=== PATIENT | female | born 1990 | race Caucasian/White ===

== ENCOUNTER 2025-01-01 14:53 | Emergency (ER) | payer OTHER, SELFPAY ==
[2025-01-01 15:01] VITALS: BP 162/105
[2025-01-01 15:30] LABS: Hematocrit 37.0 % (37.0-47.0); Hemoglobin 12.4 g/dL (12.0-16.0); Mean Corp Hgb Conc. 33.5 g/dL (33.0-37.0); Mean Corpuscular Volume 91.4 fL (81.0-99.0); Platelet Count 185 10^3/uL (130-400); Red Cell Dist. Width 12.6 % (11.5-14.5)
[2025-01-01 15:33] LABS: Urine Character Clear (Clear)
[2025-01-01 15:41] LABS: ALT (SGPT) 23 U/L (0-35); AST (SGOT) 25 U/L (14-36); Albumin 4.5 g/dl (3.5-5.0); Alkaline Phosphatase 44 U/L (38-126); Blood Urea Nitrogen 10 mg/dl (7-17); Calcium 9.1 mg/dl (8.4-10.2); Carbon Dioxide 25 mmol/L (22-30); Chloride 110 mmol/L (98-107); Glucose 107 mg/dl (70-99); Potassium 3.8 mmol/L (3.5-5.1); Sodium 140 mmol/L (135-145); Total Protein 7.5 g/dl (6.3-8.2); eGFR > 60.00
[2025-01-01 15:58] LABS: Nucleated Red Blood Cells % 0 %
[2025-01-01 16:05] VITALS: BMI 19.5
[2025-01-01 16:11] VITALS: BP 123/95
[2025-01-01] MEDS: NSS 1000 IV (18:18)
[2025-01-01 19:15] VITALS: BP 126/87
--- NOTE | 2025-01-01 23:32 | ED.GENMED ---
History of Present Illness
General
Chief Complaint: Dehydration Symptoms
Source: patient
Exam Limitations: none
Time Seen by Provider: 01/01/25 16:27
Nursing documentation reviewed up to this point in time: agreed with
History of Present Illness
History of Present Illness:
Patient to ED with complaint of weakness, muscle pain, hand tremors. States she had diarrhea over night, since resolved. Today she was using hedge trimmers, doing yard work and developed muscle pain and hand tremors. She isconcerned for
dehydration and rhabdo. Brought to ED by evonne for eval.
Past History
Past History
ED Past Medical History: Other (Endometriosis, Migraines, Ovarian cyst Anema)
ED Past Surgical History: Appendectomy and Gynecological (Hysterectomy)
Social History
Tobacco: Non-smoker
Alcohol: Occasional
Personal:
Living: with family
Review of Systems
Review of Systems
Allergies reviewed?: Yes
All Other Systems: ROS reviewed and negative except as documented in HPI and ROS
Constitutional: Reports no symptoms
EENT: Reports no symptoms
Respiratory: Reports no symptoms
Cardiac: Reports no symptoms
ABD/GI: Reports no symptoms
: Reports no symptoms
Musculoskeletal: Reports no symptoms
Skin: Reports no symptoms
Neurological: Reports weakness and other (fine tremor bilater hands)
Psychiatric: Reports no symptoms
Phy Exam
General Physical Exam
General Presentation: well appearing and no apparent distress
General age: appears stated age
General Skin: warm and dry
Cardiovascular Exam
Cardiovascular Exam: regular rate/rhythm and no edema
Neurological Exam
Neurological Exam: alert, oriented x3, CN II-XII intact, no motor deficits, no sensory deficits and speech normal
Musculoskeletal Exam
Musculoskeletal Exam: full ROM and neuro vasc intact
Skin Exam
Skin Exam: normal color, warm/dry, no rash and no petechia
Psychiatric Exam
Psychiatric Exam: normal mood/affect
Course
Orders/Labs/Results
Orders:
Orders
01/01/25 15:12
Complete Blood Count/With Diff Urgent
Comprehensive Metabolic Panel Urgent
Creatine Phosphokinase Urgent
Comment: ADD ON
Urinalysis Reflex To Culture Urgent
Date Specimen was Collected: 01/01/25
Time Specimen was Collected: 15:05
01/01/25 16:08
Add On- LAB Urgent
Tests Added?: creatinine kinase
01/01/25 17:11
0.9% Sodium Chloride 1000 ml [Nss] 1,000 ml IV BOLUS
Abnormal Lab Results
01/01/25
15:12
RBC 4.05 L 10^6/uL
(4.20-5.40)
MPV 12.2 H fL
(7.4-10.4)
Absolute Monos (auto) 0.8 H 10^3/uL
(0.1-0.6)
Chloride 110 H mmol/L
(98-107)
Glucose 107 H mg/dl
(70-99)
01/01/25 15:12
01/01/25 15:12
Vital Signs
Initial and Last Documented VS:
Initial Vital Signs
Temp Pulse Resp BP Pulse Ox
98.4 F 78 18 162/105 99
01/01/25 15:01 01/01/25 15:01 01/01/25 15:01 01/01/25 15:01 01/01/25 15:01
Last Documented Vital Signs
Temp Pulse Resp BP Pulse Ox
98.6 F 66 14 126/87 100
01/01/25 19:15 01/01/25 19:15 01/01/25 19:15 01/01/25 19:15 01/01/25 23:33
*Pulse Oximetry
SaO2: 100
Oxygen Mode of Delivery: Room air
Patient hypoxic: no
*Critical Care Note
Total Time (30-74mins, 75-104mins- exclusive of procedures): Not Applicable
Update Note
Update Note:
Patient to ED with weakness, muscle aches and hand tremors after episode ofdiarrhea last PM, yard work today. VSS, she remains afebrile. Labs reviewed, no evidence of rhabdo or dehydration. Given 1L NSS with some improvement. Will discharge home
and she will continue to hydrate. Close follow up with PCP. Given instructions on s/s to return to ED and she is agreeable to plan.
ED Attending Note
-
Portions of this chart may have been created with voice recognition software.� Occasional wrong word or��sound alike� substitutions may have occurred due to the inherent limitations of voice recognition software.
Discharge Plan
Departure
Patient Disposition: Home (Routine Discharge)
Date of Disposition: 01/01/25
Time of Disposition: 19:29
Patient with high blood pressure during this ER visit?: No
Condition: Good
Covid-19: Not Applicable
Discharge Problem:
Dehydration
Instructions: Dehydration, Adult (DC)
Prescriptions:
No Action
topiramate 25 MG tablet
100 mg PO HS
Referrals:
UNKNOWN - PT DOES,NOT KNOW [Family Provider]
Activity Restrictions/Additional Instructions:
Follow up with your family doctor.
Interventions
Interventions:
*Risk Screen - Suicide Last Done: 01/01/25 15:01
*General Assessment Last Done: 01/01/25 15:01
*Neglect/Abuse Screening Last Done: 01/01/25 15:01
*ED- Fall Risk Assessment Last Done: 01/01/25 16:05
*ED COVID-19 Vaccine History Last Done: 01/01/25 16:05
*Nursing Disposition Last Done: 01/01/25 19:41
ED- Cardiac Assessment Last Done: 01/01/25 16:05
ED- Neurological Assessment Last Done: 01/01/25 19:19
ED- Pulmonary Assessment Last Done: 01/01/25 19:19
Discharge Date and Time
Discharge Date/Time: 01/01/25 19:41
Print Language: [id number]
== END 2025-01-01 19:41 | disposition home or self-care (01) ==
LOC: EMR 14:53
PROVIDERS: EMERGENCY PHYSICIAN Student in an Organized Health Care Education/Training Program
DX: E86.0 Dehydration (principal); Z90.49 Acquired absence of other specified parts of digestive tract; Z90.710 Acquired absence of both cervix and uterus
CPT/HCPCS: 96360; 99284; 80053; 81003; 82550; 85025